=== PATIENT | male | born 1955 | race Caucasian/White ===

== ENCOUNTER 2019-08-18 04:54 | Emergency (ER) | payer SELFPAY ==
[~2019-08-18] VITALS: Ht 177.8 cm; Wt 63.5 kg
[2019-08-18] MEDS ORDERED: AMIODARONE HCL 150 MG/100 ML BAG IV ONE (04:55)
[2019-08-18] MEDS ORDERED: SODIUM CHLORIDE 0.9% 1000 ML BAG IV ONE (04:55)
[2019-08-18] MEDS ORDERED: DEXTROSE 50% SYRINGE 50 ML IV ONE (04:55)
[2019-08-18] MEDS ORDERED: SODIUM CHLORIDE FLUSH 10 ML SYR INJ ONE (04:55)
[2019-08-18] MEDS ORDERED: AMIODARONE 900MG 900 MG/500 ML BAG IV ONE (04:55)
[2019-08-18] MEDS ORDERED: SODIUM BICARBONATE 8.4% INJ 50 ML SYR IV ONE (04:55)
[2019-08-18] MEDS ORDERED: LIDOCAINE HCL 2% 100 MG/5 ML IV ONE (04:55)
[2019-08-18] MEDS ORDERED: EPINEPHRINE HCL SYRINGE IV ONE (04:55)
[2019-08-18] MEDS ORDERED: MAGNESIUM SULF 1GRAM/DEXTROSE PREMIX BAG 100ML IV ONE (04:55)
[2019-08-18] MEDS ORDERED: CALCIUM CHLORIDE 10% 1.36 MEQ/ML 10ML SYR IV ONE ×2 (04:55)
[2019-08-18] MEDS ORDERED: ALTEPLASE 50 MG/VIAL (29 MILLION IU) ONE (06:00)
--- NOTE | 2019-08-18 06:00 | NUR ---
DR. CLOTILDE DANIELLE, PTS PCP, PAGED
--- NOTE | 2019-08-18 06:15 | NUR ---
[employer] NOTIFIED THAT PTS FAMILY DOES NOT WANT TO DONATE
--- NOTE | 2019-08-18 06:50 | NUR ---
DR. 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
--- NOTE | 2019-08-18 08:42 | NUR ---
[facility] PLACED IN BODY TRANSPORT BAG AFTER IDENTIFICATION WITH [employer].
--- NOTE | 2019-08-18 08:49 | NUR ---
CALLING DR. DANIELLE'S OFFICE FOR MEDICAL HISTORY. REACHED DR. DANIELLE AT HIS OFFICE OBTAINING MEDICAL HISTORY. DR. DANIELLE REPORTS THAT THEY DO NOT HAVE RECORD OF A LESLEY DESIR A PATIENT OF HIS PRACTICE.
--- NOTE | 2019-08-18 09:42 | NUR ---
ORLIN DESIR STATES THAT [facility] HAS MADE ARRANGMENTS FOR THE CORPSE TO BE PICKED UP BY [facility].
--- NOTE | 2019-08-18 09:52 | NUR ---
REPORTED ORLIN DESIR'S INFORMATION TO THE MEDICAL EXAMINERS OFFICE FOR FURTHER REVIEW. PER MS. DESIR THE PATIENT HAD BEEN SICK FOR THE LAST MONTH AND WAS BEING TREATED FOR CIRRHOSIS OF THE LIVER, BUT THEY ARE UNAWARE OF THE PHYSICIAN WHO WAS TREATING HIM. ORLIN ALSO STATES THAT THE PATIENT BEGAN TO EXPERIENCE SHORTNESS OF BREATH YESTERDAY EVENING WHILE CUTTING THE GRASS AND BEGAN TO HAVE LEFT ARM PAIN AND IGNORED IT WHEN THEY OFFERED TO HAVE HIM CHECKED OUT. THIS MORNING THE PT DROVE HIMSELF TO ER AND DURING THE TRIAGE WENT INTO CARDIAC ARREST.
--- NOTE | 2019-08-18 14:06 | NUR ---
CALLED [facility] OFFICE AND SPOKE WITH LILI WHO SENT ME TO A ALYSSA AND SENT ME TO A LADY NAMED AUSTYN. EXPLAINED SITUATION AND AUSTYN HAD TONE/ATTITUDE STATING OUR JOB WAS NOT DONE PROPERLY OBTAINING MD INFO WHILE FM HERE AND BECAUSE OF THAT SHE HAD TO "BACK TRACK" AND "BOTHER THE FAMILY." ASKED FOR DIRECTOR OF PULMONARY UNIT TO CONTINUE MOVING FORWARD TO HELP FACILITATE HELPING PT. SPOKE WITH SUE STATES HE WILL LOOK INTO MATTER TO HELP MOVE SITUATION FORWARD AND CALL BACK TO UPDATE PLAN OF CARE. INFORMED ER KRIS OF CONVERSATION AND UPDATES.
--- NOTE | 2019-08-18 14:22 | NUR ---
Able to be released to home.
--- NOTE | 2019-08-18 14:45 | NUR ---
CALLED [facility] AND GIVEN PROTOTYPE [facility]PENTER LOCATION INFO [address], [place] [id number] STATES THEY ARE ON THEIR WAY TO GET PATIENT.
== END 2019-08-18 15:22 | disposition expired ==
LOC: ER 04:54
DX: R07.9 Chest pain, unspecified (principal); I46.9 Cardiac arrest, cause unspecified; I49.01 Ventricular fibrillation; K74.60 Unspecified cirrhosis of liver
CPT/HCPCS: 31500; 92960; 92977; 99284; J0171; J2001; J3475; J7030 ×2; J7799